=== PATIENT | female | born 1995 | race Caucasian/White ===

== ENCOUNTER → 2018-01-26 13:36 | Outpatient (REF) | payer BC, SELFPAY ==
[2018-01-26 14:22] LABS: Basophils % 0.4 % (0.1-2.0); Eosinophils # 0.1 K/mm3 (0.0-0.4); Eosinophils % 1.2 % (0.1-12.0); Hematocrit 42.6 % (37.0-47.0); Hemoglobin 13.4 g/dL (12.2-16.2); Lymphocytes # 2.4 K/mm3 (0.7-4.5); Lymphocytes % 38.4 K/mm3 (10-50); Mean Corpuscular HGB Conc 31.5 g/dL (31.8-35.4); Mean Corpuscular Hemoglobin 28.9 pg (27.0-31.2); Mean Corpuscular Volume 91.6 fl (81-99); Mean Platelet Volume 8.4 fl (7.4-10.4); Monocytes # 0.2 K/mm3 (0.1-1.0); Monocytes % 3.2 % (1.7-9.3); Neutrophils # 3.5 K/mm3 (1.8-7.8); Neutrophils % 56.7 % (37.0-80.0); Platelet Count 348 K/mm3 (142-424); Red Blood Count 4.65 M/mm3 (4.20-5.40); White Blood Count 6.2 K/mm3 (4.8-10.8)
[2018-01-26 14:59] LABS: Alanine Aminotransferase 30 U/L (12-78); Albumin Level 3.7 gm/dL (3.4-5.0); Alkaline Phosphatase 81 U/L (46-116); Anion Gap 15.1 mEq/L (5-15); Aspartate Amino Transferase 18 U/L (15-37); Bilirubin,Total 0.7 mg/dL (0.2-1.0); Blood Urea Nitrogen 7 mg/dL (7-18); Calcium 8.7 mg/dL (8.5-10.1); Carbon Dioxide 25 mmol/L (21.0-32.0); Chloride 105 mmol/L (98-107); Chol/HDL Ratio 4.9 (1-3.5); Cholesterol 161 mg/dL (140-200); Creatinine,Serum 0.63 mg/dL (0.55-1.02); Estimated Glomerular Filt Rate 119 ml/min (>60); Free T4 (Free Thyroxine) 0.94 ng/dl (0.76-1.46); GFR (African American) 144 ML/MIN (>60); Globulin 3.8 gm/dl (1.3-3.2); Glucose 94 mg/dL (74-106); HDL Cholesterol 33 mg/dL (29-89); LDL Cholesterol 103 mg/dL (0-130); Potassium 4.1 mmoL/L (3.5-5.1); Sodium 141 mmol/L (136-145); Thyroid Stimulating Hormone 1.42 uIU/ml (0.358-3.740); Total Protein,Serum 7.5 gm/dL (6.4-8.2); Triglycerides 127 mg/dL (30-200); VLDL Cholesterol 25 mg/dL (0-40)
[2018-01-27 18:08] LABS: Vitamin D 25 Hydroxy 10.9 ng/mL (30.0-100.0)
== END ==
LOC: LAB 13:36
PROVIDERS: PCP Nurse Practitioner Family; Visit Provider Nurse Practitioner Family
DX: R53.83 Other fatigue (principal)
CPT/HCPCS: 80053; 80061; 82652; 84439; 84443; 85025

== ENCOUNTER → 2018-05-17 10:40 | Outpatient (CLI) | payer BC, SELFPAY ==
--- NOTE | 2018-05-17 10:48 | XR_ITS ---
XR chest 2V HISTORY: Chest pain ITS.REASON: . ORDERING PHYSICIAN: Fay Soto PATIENT AGE: 22 years COMPARISON: None FINDINGS: The cardiomediastinal silhouette and pulmonary vascularity are within normal limits. The lungs are clear without infiltrates, suspicious nodules, or pleural effusions. No acute bony abnormalities. IMPRESSION: Negative chest, no acute finding
[2018-05-17 11:42] LABS: D-Dimer < 100 ng/mL (0-400)
[2018-05-17 12:41] LABS: Anion Gap 13.2 mEq/L (5-15); Blood Urea Nitrogen 10 mg/dL (7-18); Carbon Dioxide 25 mmol/L (21.0-32.0); Chloride 105 mmol/L (98-107); Creatinine,Serum 0.62 mg/dL (0.55-1.02); Estimated Glomerular Filt Rate 122 ml/min (>60); Free T4 (Free Thyroxine) 0.97 ng/dl (0.76-1.46); GFR (African American) 147 ML/MIN (>60); Glucose 97 mg/dL (74-106); Potassium 4.2 mmoL/L (3.5-5.1); Sodium 139 mmol/L (136-145); Thyroid Stimulating Hormone 1.51 uIU/ml (0.358-3.740)
== END ==
PROVIDERS: PCP Nurse Practitioner Family; Visit Provider Urology
DX: R07.9 Chest pain, unspecified (principal); R06.00 Dyspnea, unspecified; E66.9 Obesity, unspecified; Z82.49 Family history of ischemic heart disease and other diseases of the circulatory system
CPT/HCPCS: 36415; 71046; 80048; 84439; 84443; 85378

== ENCOUNTER → 2018-05-23 11:45 | Outpatient (CLI) | payer BC, SELFPAY ==
--- NOTE | 2018-05-23 11:47 | NM_ITS ---
History and Indications: Hypertension, family history, chest pain and shortness of breath Procedure: Patient exercised on Jurgen protocol 7 minutes and 30 seconds, resting heart rate was 71 bpm resting blood pressure 139/80. With exercise maximum heart rate achieved was 1 73 bpm which is greater than 85% of the maximum predicted heart rate and a blood pressure was 182/80. Test was started due to shortness of breath and fatigue. Patient has a good exercise capacity achieved 10.1mets of workload on treadmill, the blood pressure response to exercise was adequate. Electrocardiogram: Resting electrocardiogram showed sinus rhythm, with exercise there is less than 1.[address] segment depression noted from the baseline EKG. The EKG portion of the exercise Myoview is negative for ischemia. Cardiac stress and resting SPECT images: Cardiac stress and resting SPECT images were obtained using technetium 99 Myoview 32.8 mCi at stress and 9.9 mCi at rest. Gated SPECT further analysis of segmental wall motion and calculation of the ejection fraction also done. Cardiac stress and resting SPECT images show uniform myocardial activity without segmental perfusion abnormality, computer derived ejection fraction is 56% with no regional wall motion abnormality, right ventricle is normal size and contractility. Conclusion: 1. The EKG portion of the exercise Myoview is negative for ischemia, patient has good exercise capacity achieved 10.1mets of workload on treadmill, the blood pressure response to exercise was adequate. 2. No scintigraphic evidence of reversible ischemia seen at this level of exercise, either derived ejection fraction 56% with no regional wall motion abnormality, right ventricle is normal size and contractility.
--- NOTE | 2018-05-23 12:30 | HMH.ITSHM ---
Current Home Medications as stated by this patient Jessie Dior or sales representative education courses. []NITRO
== END ==
PROVIDERS: PCP Nurse Practitioner Family; Visit Provider Internal Medicine
DX: R07.9 Chest pain, unspecified (principal); R06.00 Dyspnea, unspecified; E66.9 Obesity, unspecified; Z82.49 Family history of ischemic heart disease and other diseases of the circulatory system
CPT/HCPCS: 78452; 93017; 93306; A9502

== ENCOUNTER 2019-09-16 19:01 | Emergency (ER) | payer BC, SELFPAY ==
[2019-09-16 19:01] VITALS: BP 130/85; PULSE 64; RESP 17; TEMP 36.9; O2SAT 97; BMI 39.6
--- NOTE | 2019-09-16 19:11 | XR_ITS ---
PROCEDURE: XR ANKLE RT MIN 3V CLINICAL INDICATION: TWISTED ANKLE GETTING OUT OF CAR Posttraumatic pain COMPARISON: No exams were available for comparison FINDINGS: There is a well-circumscribed subchondral bony fragment along the medial aspect of the talar dome consistent with osteochondritis dissecans with an osteochondral fragment.. No acute fracture or dislocation is evident. 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 No acute finding Dictated by: Kashif Dexter MD 09/16/2019 20:43 Electronically signed by Kashif Dexter MD in [place] 09/16/2019 20:43
--- NOTE | 2019-09-16 19:13 | XR_ITS ---
PROCEDURE: XR FOOT RT MIN 3V CLINICAL INDICATION: TWISTED IT GETTING OUT OF THE CAR Posttraumatic pain the COMPARISON: [id number] XR foot RT min 3V from 02/15/2018 FINDINGS: There is a small calcific density along the dorsal aspect of the tarsal metatarsal junction which is not significantly changed and may be due to an old avulsion fracture. No acute fracture or dislocation is evident. The joint spaces are well-preserved. No significant degenerative/arthritic changes. No erosive changes evident. Other findings:None. IMPRESSION: No acute findings. Dictated by: Kashif Dexter MD 09/16/2019 20:40 Electronically signed by Kashif Dexter MD in [place] 09/16/2019 20:40
--- NOTE | 2019-09-16 19:39 | HMH.EDUTC ---
[facility] [place] Clinical Impression: Ankle sprain Qualifiers: Encounter type: initial encounter Involved ligament of ankle: unspecified ligament Laterality: right Qualified Code(s): S93.401A - Sprain of unspecified ligament of right ankle, initial encounter Foot sprain Qualifiers: Encounter type: initial encounter Laterality: right Qualified Code(s): S93.601A - Unspecified sprain of right foot, initial encounter Disposition: Home, Self-Care Condition on Discharge: Good Instructions: How to Use Crutches, Acetaminophen (Alternative Therapy), How To Perform RICE (Rest, Ice, Compress, Elevate), How to Apply an Cabrera Wrap, Ibuprofen Additional Instructions: *weight bearing as tolerated *RICE, Rest the extremity, Ice 15-20 minutes 3-4 times daily, Compress- wear the cabrera wrap as discussed as much as possible to help reduce swelling and pain, Elevate the extremity when at rest *Cabrera wrap is for support and help control swelling, use it except in the shower. Be sure that is not to tight but not to loose either *Elevate when resting *Ibuprofen every 6-8 hours as needed for pain an inflammation. If need something more can take Tylenol in between doses of Ibuprofen to help Immediately follow up with your family doctor for new or worsening of symptoms, or no noticeable improvement over the next 3-5 days Follow up with family doctor if no improvement or any worsening of symptoms in the next 48-72 hrs Follow up [address] Dr Joshi if no improvement Referrals: Terra Fletcher APRN [Primary Care Provider] - As needed Almaz Joshi DPM [Staff Physician] - As needed Time of Disposition: 19:57 Medical Decision Making - Joni Inquiry Pt receiving controlled substance: No Joni was queried for this patient: No Vital Signs: 09/16/19 19:01 Temperature 98.4 F Temperature Source Oral Pulse Rate [Radial] 64 Respiratory Rate 17 Blood Pressure [Right Arm] 130/85 Blood Pressure Mean [Right Arm] 100 Blood Pressure Source [Right Arm] Automatic Cuff Blood Pressure Position [Right Arm] Sitting 02 Sat by Pulse Oximetry 97 Oxygen Delivery Method Room Air Orders (Tests/Meds): ED MEDICATIONS Discontinued Medications Generic Name Dose Route Start Last Admin Trade Name Freq PRN Reason Stop Dose Admin Ibuprofen 800 mg 09/16/19 19:18 09/16/19 19:27 Motrin 400mg Tablet PO 09/16/19 19:19 800 mg ONCE ONE Administration ORDERS Category Date Time Status XR ankle RT min 3V Stat Exams 09/16/19 19:11 Taken XR foot RT min 3V Stat Exams 09/16/19 19:13 Taken - Radiology Data #1 Image(s): Foot/Toes Image Reviewed: Yes I reviewed the patient's radiology image Preliminary Findings: No Fracture Seen #2 Image(s): Ankle Image Reviewed: Yes I reviewed the patient's radiology image Preliminary Findings: No Fracture Seen [facility] [place] - General Stated complaint: AO 0614 injured R Ankle Time Seen by Provider: 09/16/19 19:40 Mode of Arrival: Ambulatory Source of Information: Patient Limitations: No Limitations Description of Symptoms (Recalled from Triage Doc. by RN): twisted right ankle getting out of her car HEENT Symptoms (Recalled from RN notes): No Resp Symptoms (Recalled from RN notes): No Skin Symptoms (Recalled from RN notes): No MS Symptoms (Recalled from RN notes): Yes Functional Status (Recalled from RN notes): wnl - History of Present Illness Provider Complaint: Patient states that she was getting out of her car earlier and she slipped and fell and twisted her right ankle and hurt her foot States that she felt something pop States that she laid down and took a nap and when she woke up it was still hurting so she came in to get it checked - Related Data Previous Rx's Medication Instructions Recorded Butalb/Acetaminophen/Caffeine 1 - 2 each PO Q4H PRN #20 cap 04/07/19 [Fioricet 50-300-40 mg Capsule] Ondansetron [Zofran 4mg ODT] 4 mg PO Q8H PRN #10 tab.rapdis 04/07/19 Pseudoephedrine HCl [Sudafed 12
[2019-09-16 20:22] VITALS: BP 130/85; PULSE 64; RESP 17; TEMP 36.9; O2SAT 97
== END 2019-09-16 20:26 | disposition home or self-care (01) ==
PROVIDERS: Emergency Provider Nurse Practitioner; PCP Nurse Practitioner Family
DX: S93.401A Sprain of unspecified ligament of right ankle, initial encounter (principal); S93.601A Unspecified sprain of right foot, initial encounter; X50.1XXA Overexertion from prolonged static or awkward postures, initial encounter; Y92.89 Other specified places as the place of occurrence of the external cause; F41.8 Other specified anxiety disorders; Z90.09 Acquired absence of other part of head and neck; Z88.0 Allergy status to penicillin
CPT/HCPCS: 73610; 73630; 99201